=== PATIENT | female | born 1955 | race Caucasian/White ===

== ENCOUNTER 2025-04-06 12:55 | Outpatient (CLI) | payer OTHER, SELFPAY ==
--- OUTSIDE RECORDS SUMMARY | 2025-04-06 13:07 | XMS_ITS | Clinical Summary ---
Author Organization [facility] Address [address] [place] [address] Care Team Providers Care Superintendent Maintenance [employer] Name Role Phone Jj Farr MD Primary Care Provider [phone] Mike Paredes MD Unavailable [phone] Allergies Active Allergy Reactions Criticality Noted Date Comments Codeine Nausea only,Vomiting Low Reaction: Nausea, Vomiting, , , , Hydroxychloroquine Rash Medium Reaction: rash, , Reaction: rash, Scopolamine Hallucinations Medium 11/28/2022 Medications fluticasone propionate (FLONASE) 50 mcg/actuation nasal spray Administer 2 sprays into each nostril daily Active lisinopril (PRINIVIL,ZESTRIL) 2.5 mg tablet Take 4 tablets (10 mg total) by mouth daily Active mirtazapine (REMERON BERTIN-TAB) 15 mg disintegrating tablet Take 1 tablet (15 mg total) by mouth as needed 0 Active famotidine (PEPCID) 20 mg tablet Take 1 tablet (20 mg total) by mouth daily Active tolterodine (DETROL) 2 mg tablet Take 2 tablets (4 mg total) by mouth daily Active celecoxib (CeleBREX) 100 mg capsule Take 1 capsule (100 mg total) by mouth 2 (two) times a day 5 Active albuterol HFA (PROVENTIL HFA,VENTOLIN HFA,PROAIR HFA) 90 mcg/actuation inhaler INHALE 2 PUFFS BY MOUTH EVERY 4 HOURS FOR WHEEZING 5 Active folic acid (FOLVITE) 1 mg tablet Take 1 tablet (1,000 mcg total) by mouth daily 4 Active sertraline (ZOLOFT) 25 mg tablet Take 1 tablet (25 mg total) by mouth daily 5 Active rOPINIRole (REQUIP) 1 mg tabletIndications: Restless leg syndrome Take 1 tablet (1 mg total) by mouth 3 (three) times a day 270 tablet 3 5 Active Active Problems Problem Noted Date Diagnosed Date Aftercare following left knee joint replacement surgery 12/19/2022 Restless leg syndrome 10/26/2022 Aftercare following joint replacement surgery Aftercare following right knee joint replacement surgery 12/01/2019 Long-term current use of hig h risk medication other than anticoagulant 07/26/2017 Arthralgia 07/26/2017 MCTD (mixed connective tissue disease) 7 High risk medication use 05/23/2017 Dry eye 05/23/2017 Osteoarthritis of right knee 05/23/2017 Chronic midline low back pain without sciatica 0 05/23/2017 Ankle pain 05/04/2015 Overview (02/22/2017): Ankle pain Lupus erythematosus 05/04/2015 Overview (02/22/2017): Lupus Osteoarthritis 05/04/2015 Overview (02/22/2017): Osteoarthritis Hyperlipidemia 04/04/2014 Overview (02/23/2017): Hyperlipidemia Hypertension 04/04/2014 Overview (02/23/2017): Hypertension Periodic limb movement disorder 05/08/2013 Overview (02/23/2017): Periodic limb movement disorder Adiposity 05/08/2013 Overview (02/23/2017): Obesity Hypersomnia 05/08/2013 Overview (02/23/2017): Hypersomnia Snoring 05/08/2013 Overview (02/23/2017): Snoring Insomnia 05/08/2013 Overview (02/23/2017): Insomnia Resolved Problems Problem Noted Date Diagnosed Date Resolved Date Primary osteoarthritis of left knee 02/25/2021 12/19/2022 Primary osteoarthritis of right knee 11/05/2019 12/19/2022 Overview (11/05/2019): Added automatically from request for surgery [id number] Bilateral primary osteoarthritis of knee 02/19/2019 12/19/2022 Encounters Date Type Department Care Team Description 01/30/2025 9:00 AM CDT Office Visit [facility] [address] [place] [address] Arnoldo Portillo MD Restless leg syndrome from Last 3 Months Immunizations Immunization Administration Dates Next Due Influenza, Quadrivalent, Split, Intramuscular Surgical History Surgery Date Site/Laterality Comments APPENDECTOMY Appendectomy BLADDER SURGERY bladder sling TONSILLECTOMY Tonsillectomy KNEE ARTHROSCOPY Arthroscopy knee CHOLECYSTECTOMY Cholecystectomy ROTATOR CUFF REPAIR Right HYSTERECTOMY 07/20/1988 - 08/18/1988 Hysterectomy OOPHORECTOMY 07/20/1988 - 08/18/1988 one ovary removed with hysterectomy JOINT REPLACEMENT Right knee Medical History Medical History Date Comments Hx Other Medical Headache, migra ine Hyperlipidemia Hyperlipidemia Hypertension Hypertension Hx Other Medical chronic bronchi tis Hx Other Medical sinus problems Hx Other Medical adenoids Hx Other Medical sinitis Hx Other Medical bladder sling Hx Other Medical Rotator cuff re pair Asthma Asthma Hx Other Medical osteoarthritis; Comments: CARTER 07/22/2014 - Hx Other Medical right shoulder RTC repair Hx Other Medical right knee arth roscopic meniscal repair Hx Other Medical hysterectomy Hx Other Medical bladder suspens ion Hx Other Medical cholecystectomy Hx Other Medical appendectomy Hx Other Medical Right ankle fx. 05-01-15.; Comments: BRENDON 05/04/2015 - Hx Other Medical Hysterectomy in the past.; Comments: BRENDON 05/04/2015 - Hx Other Medical Cholecystectomy in the past.; Comments: BRENDON 05/04/2015 - Hx Other Medical Appendectomy in the past.; Comments: BRENDON 05/04/2015 - Hx Other Medical Tonsillectomy i n the past.; Comments: BRENDON 05/04/2015 - Hx Other Medical Bladder sling i n the past.; Comments: JJC 05/04/2015 - GERD (gastroesophageal reflux disease) Arthritis PONV (postoperative nausea and vomiting) Chronic bronchitis (HCC) Mild diastolic dysfunction Tricuspid valve regurgitation Family History Medical History Relation Name Comments Lung cancer Brother kishore Throat cancer Brother kishore Asthma Daughter Diabetes Father Diabetes mellit us; Heart disease Father Hypertension Father Multiple sclerosis Father Multiple sclerosis; Alzheimer's disease Mother Alzheime r's disease; COPD Mother COPD; Dementia Mother Hypertension Mother Hypertension; Osteoporosis Mother Osteoporosis; Stroke Mother Asthma Other 1 granddaughter Family history of Asthma; Diabetes Other 2 Family history of Diabetes mellitus; Other Other 3 Family history of Colitis; Leukemia Other 4 cousin Family history of Leukemia; Stroke Other 5 aunts Family history of Stroke; Gout Other 6 son Family history of Gout; Pneumonia Other 7 Family history of pneumonia; Relation Name Status Comments Brother kishore Daughter Father Mother Other 1 granddaughter Alive Other 2 Other 3 Other 4 cousin Other 5 aunts Other 6 son Other 7 Social History Tobacco Use Types Packs/Day Years Used Date Smoking Tobacco: Never Smokeless Tobacco: Never Tobacco Cessation:Counseling Given: Not Answered Alcohol Use Standard Drinks/Week Comments Yes 0 (1 standard drink = 0.6 oz pur e alcohol) once a year AUDIT-C Answer Date Recorded Frequency of Alcohol Consumption Not on file 11/28/2022 Q2: How many drinks containi ng alcohol do you have on a typical day when you are drinking? Patient does not drink Frequency of Binge Drinking Not on file 11/19 PHQ-2 Answer Date Recorded PHQ-2 Total Score (If total score is 3 or more points, staff should administer the PHQ-9) 0 12/06/2022 Personal Safety Answer Date Recorded Getting School Help Needed Denies 11/19 Comments No Sex and Gender Information Value Date Recorded Sex Assigned at Not on file Legal Sex Female 1:28 AM PLANNING LEAD Gender Identity Female 11/29/2020 10:55 PM PLANNING LEAD Sexual Orientation Straight 02/19/2019 11 :19 AM CDT Obstetrics History Para Term AB IAB SAB Ectopic Multiple Livin g Live Births 2 2 2 Date Outcome GA Total Labor Labor/2nd/3rd Weight Sex Type Anes PTL Esperanza A1 A5 Name Clin Term Term Last Filed Vital Signs Vital Sign Reading Time Taken Comments Blood Pressure 143/80 01/30/2025 8:44 AM CDT Pulse 61 01/30/2025 8:44 AM CDT Temperature 36.6 C (97.9 F) 12/07/2022 11:00 AM PLANNING LEAD Respiratory Rate 18 02/01/2024 9:32 AM CDT Oxygen Saturation 92% 01/30/2025 8:44 AM CDT Inhaled Oxygen Concentration - - Weight 97 kg (213 lb 12.8 oz) 01/30/2025 8:44 AM CDT Height 160 cm (5' 2.99 ) 01/30/2025 8:44 AM CDT Body Mass Index 37.88 01/30/2025 8:44 AM CDT Plan of Treatment Health Maintenance Due Date Last Done Comments DTaP/Tdap/Td Vaccine (1 - Tdap) 1966 Hepatitis B Screening 1973 Zoster Vaccine (1 of 2) 2005 Pneumococcal vaccine 65+ (2 of 2 - PCV) 07/29/2014 07/29/2013 Osteoporosis Screening-Bone Density Scan 12/19/2019 12/19/2017 Well Visit 65+ 2020 Colon Cancer Screening-Colonoscopy 01/28/2023 01/28/2013, 02/16/2011 Depression Screening 11/23/2023 11/23/2022, 11/26/2019, 11/05/2019 Fall Risk Assessment 12/07/2023 12/07/2022 Breast Cancer Screening-Mammogram 07/15/2025 07/15/2024, 05/08/2023, 04/07/2022, Additional history exists Influenza Vaccine (Season Ended) 2025 08/19/2017, 08/18/2016, 08/09/2016, Additional history exists Colon Cancer Screening-CT Colonography Discontinued 01/28/2013, 02/16/2011 Colon Cancer Screening-DNA Stool Discontinued 01/29/20 13, 02/16/2011 Colon Cancer Screening-FIT Discontinued 01/28/2013, Colon Cancer Screening-Sigmoidoscopy Discontinued 01/28/2013, 02/16/2011 Hepatitis C Screening Completed 11/03/2016, 014 Medical Devices Implanted Type Area Orthotist Prosthetist Device Identifier Shelf Expiration Date Model / Serial / Lot Simplex Hv With Gentamicin Implanted:Qty: 2 on 11/24/2019 by Mike Paredes MD at [facility] Right: Knee [employer] [id number] 06/18/2021 6195-1-001 / / [id number] [employer] [id number] Attune Cemented Posterior Stabilize Knee Right 5 Narrow Component - [id number] Implanted:Qty: 1 on 11/24/2019 by Mike Paredes MD at [facility] Right: Knee [employer] 10/18/2029 [id number] / / [id number] [employer] [id number] Attune S+ Cement Fix Bearing Knee 5 Baseplate Tibial - [id number] Implanted:Qty: 1 on 11/24/2019 by Mike Paredes MD at [facility] Right: Knee [employer] 10/18/2029 [id number] / / [id number] Simplex Hv With Gentamicin Implanted:Qty: 1 on 11/24/2019 by Mike Paredes MD at [facility] Right: Knee [employer] [id number] 06/18/2021 6195-1-001 / / [id number] [employer] [id number] Attune 8mm Posterior Stabilize Fix Bearing Knee 5 Insert Tibial - [id number] Implanted:Qty: 1 on 11/24/2019 by Mike Paredes MD at [facility] Right: Knee [employer] 08/18/2024 [id number] / / [id number] [employer] Attune 8mm Posterior Stabilize Fix Bearing Knee 5 Insert Tibial [id number] - [id number] Implanted:Qty: 1 on 12/06/2022 by Mike Paredes MD at [facility] Left: Knee [employer] [id number] 08/18/2027 [id number] / / [id number] [employer] Cement Bone Simplex Gentamicin High Viscosity 40 6195-1-001 - [id number] Implanted:Qty: 1 on 12/06/2022 by Mike Paredes MD at [facility] [employer] 06/18/2024 6195-1-001 / / [id number] [employer] Cement Bone Simplex Gentamicin High Viscosity 40 6195-1-001 - [id number] Implanted:Qty: 1 on 12/06/2022 by Mike Paredes MD at [facility] [employer] 06/18/2024 6195-1-001 / / [id number] [employer] Attune S+ Cement Fix Bearing Knee 4 Baseplate Tibial [id number] - [id number] Implanted:Qty: 1 on 12/06/2022 by Mike Paredes MD at [facility] Left: Knee [employer] [id number] 07/19/2032 [id number] / / [id number] [employer] Attune Cemented Posterior Stabilize Knee Left 5 Narrow Component [id number] - [id number] Implanted:Qty: 1 on 12/06/2022 by Mike Paredes MD at [facility] Left: Knee [employer] [id number] 09/18/2032 [id number] / / [id number] Procedures Procedure Name Priority Date/Time Associated Diagnosis Comments SCREENING MAMMOGRAM BILATERAL W DON Schedule Routine, Read Routine (OP Routine) 07/15/2024 3:09 PM CDT Screening mammogram, encounter for DEXA AXIAL SKELETON BONE DENSITY 1 OR MORE SITES Schedule Routine, Read Routine (OP Routine) 12/19/2017 8:30 AM PLANNING LEAD Osteoarthritis, unspecified osteoarthritis type, unspecified site SERUM HEPATITIS C AB Routine 11/03/2016 10:27 AM PLANNING LEAD COLONOSCOPY 01/28/2013 12:00 AM CDT from Last 3 Months or Most Recently Relevant to Health Maintenance Results * Screening Mammogram Bilateral W Don (07/15/2024 3:09 PM CDT) Anatomical Region Laterality Modality Breast Bilateral Mammography 07/15/2024 4:08 PM CDT Impressions 07/15/2024 4:08 PM CDT There is no mammographic evidence of malignancy. A 1 year screening mammogram is recommended. BI-RADS: 1 - Negative. The patient has been or will be contacted. The patient will be entered into a reminder system with a target due date of 1 year for her next mammogram. Electronically signed by: Mary Jane Guillory M.D. Narrative 07/15/2024 4:08 PM CDT EXAMINATION: SCREENING MAMMOGRAM BILATERAL W DON ORDERING HEALTHCARE PROVIDER: SELF SCREENING MAMMOGRAM HISTORY: Routine screening mammography. COMPARISON: 05/08/2023,04/07/2022, 02/23/2021, 01/12/2020, 01/07/2019 TECHNIQUE: CC and MLO views of the bilateral breasts were obtained with digital technique using breast tomosynthesis with C view. Computer aided detection was utilized. FINDINGS: DENSITY: The tissue of the bilateral breasts is almost entirely fatty. BREASTS: There are no suspicious masses, suspicious calcifications, or other suspicious findings in either breast. There has been no suspicious interval change. us Self Screening Mammogram IMG MAMMO PROCEDURES Fi nal Result * Dexa Axial Skeleton Bone Density 1 or 2 Site (12/19/2017 8:30 AM PLANNING LEAD) Anatomical Region Laterality Modality Body N/A Other Impressions 12/19/2017 8:38 AM PLANNING LEAD 1. OSTEOPENIA OF THE HIP WITH FEMORAL NECK T SCORE -1.5. 2. NORMAL BONE MINERAL DENSITY STUDY OF THE LUMBAR SPINE WITH TOTAL T SCORE 1.3. COMMENT: W.H.O. defines the T-score of between -1 and -2.5 as osteopenia, the level at which there may be an increased risk of developing osteoporosis and fractures in the future. Osteoporosis is defined as T-score lower than -2.5 (significantly increased risk of fracture due to osteoporosis). T-score is a comparison to peak bone mineral density of young adult reference population. Z-score is a comparison to bone mineral density of sex and age group population. Electronically signed by: Son Tian M.D. Narrative 12/19/2017 8:38 AM PLANNING LEAD DEXA AXIAL SKELETON BONE DENSITY 1 OR MORE SITES HISTORY: Osteoarthritis. M19. 90 COMPARISON: None available. FINDINGS: DXA LEFT HIP RESULTS SUMMARY: 1. Femoral neck BMD 0.680 (g/cmsquared); T-SCORE -1.5 2. Total hip BMD 0.920 (g/cmsquared); T-SCORE -0.2 DXA L-SPINE RESULTS SUMMARY: 1. Total lumbar BMD 1.186 (g/cmsquared); T-SCORE 1.3 Procedure Note Son Tian MD / Provider, MD Jimmie - 12/19/2017 DEXA AXIAL SKELETON BONE DENSITY 1 OR MORE SITES HISTORY: Osteoarthritis. M19. 90 COMPARISON: None available. FINDINGS: DXA LEFT HIP RESULTS SUMMARY: 1. Femoral neck BMD 0.680 (g/cmsquared); T-SCORE -1.5 2. Total hip BMD 0.920 (g/cmsquared); T-SCORE -0.2 DXA L-SPINE RESULTS SUMMARY: 1. Total lumbar BMD 1.186 (g/cmsquared); T-SCORE 1.3 IMPRESSION: 1. OSTEOPENIA OF THE HIP WITH FEMORAL NECK T SCORE -1.5. 2. NORMAL BONE MINERAL DENSITY STUDY OF THE LUMBAR SPINE WITH TOTAL T SCORE 1.3. COMMENT: W.H.O. defines the T-score of between -1 and -2.5 as osteopenia, the level at which there may be an increased risk of developing osteoporosis and fractures in the future. Osteoporosis is defined as T-score lower than -2.5 (significantly increased risk of fracture due to osteoporosis). T-score is a comparison to peak bone mineral density of young adult reference population. Z-score is a comparison to bone mineral density of sex and age group population. Electronically signed by: Son Tian M.D. Jj Farr MD IM DXA PROCEDURES Final Re sult * Serum Hepatitis C ab (11/03/2016 10:27 AM PLANNING LEAD) HCV ab Negative Negative CDR HISTOR ICAL RESULTS Serum 11/03/2016 10:2 7 AM PLANNING LEAD Historical Provider LAB BLOOD ORDERABLES Rosetta perkins Result CDR HISTORICAL RESULTS * COLONOSCOPY (01/28/2013 12:00 AM CDT) Anatomical Region Laterality Modality Other Narrative 01/28/2013 12:00 AM CDT Ordered by an unspecified provider. Procedure Note Provider, MD Jimmie - 01/28/2013 12:00 AM CDT PROCEDURE REPORT Patient: NAZ BALTAZAR Account: [id number] Room No: : 1955 Patient Type: [facility] Attend.: Ze Lo M.D. Admit Date: 01/28/2013 Dict.: Ze Lo M.D. Disch. Date: 01/28/2013 NAME OF PROCEDURE: Colonoscopy with biopsy. HISTORY: 58-year-old female presents for screening colonoscopy. PHYSICAL EXAMINATION: Obese female. Lungs are clear. Cardiovascular examination is unremarkable. PROCEDURE: Colonoscopy with biopsy was performed with a CSID videoendoscope. The patient was premedicated by Anesthesia. On digital examination, no abnormalities were palpable. We inserted the endoscope,saw a few scattered diverticula of both the right and left side of the colon.We entered the terminal ileum. There were some very shallow ulcerations,probably 2-3 mm in diameter, in the TI that do not look typical for Crohndisease. Nevertheless, we did multiple biopsies to assess them histologically. Derrell removed the endoscope from the TI, carefully examined the well-preppedcolon which we got good visualization, and I could find no other abnormalities.The patient tolerated the procedure without difficulty. POSTOPERATIVE DIAGNOSES: 1. Tiny, shallow ulcerations in the terminal ileum, biopsied. 2. Scattered diverticula. 3. Otherwise normal. Bhargavi Johnson TD: 01/28/2013 15:09 CC: Willie Forman M.D. Authenticated by Ze Lo MD On 01/30/2013 10:11:44 AM Historical Provider ENDOSCOPY PROCEDURES Rosetta l Result from Last 3 Months or Most Recently Relevant to Health Maintenance Insurance MEDICARE [facility] CHOICE PLUS [facility] Member Subscriber Plan / Payer (Ef fective 2019-Present) Name:Naz Baltazar Relation to Subscriber:Self Name:Naz Baltazar Payer ID:[id number] (NAIC) Type:MEDICARE RISK OTHER Address: [place] [id number] [facility] Advance Directives For more information, please contact: [phone] * Full Code (Latest Code Status on File) Date Activated Date Inactivated Comments 12/06/2022 12:32 PM 12/07/2022 5:01 PM * Full Code Date Activated Date Inactivated Comments 11/27/2019 1:22 AM 11/28/2019 7:01 PM * Full Code Date Activated Date Inactivated Comments 11/24/2019 1:16 PM 11/25/2019 6:18 PM Care Teams Superintendent [employer] Relationship Specialty Start Date End Date Jj Farr MD [address] [place] [address] PCP - General Internal Medicine 02/24/22 Mike Paredes MD [address] [place] [address] [place] [address] Surgeon Orthopedic Surgery 12/07/22
--- OUTSIDE RECORDS SUMMARY | 2025-04-06 13:07 | XMS_ITS | Referral Summary ---
Author Organization [facility] Address [address] [place] [address] Care Team Providers Care Product Expert Name Role Phone Jj Farr MD Primary Care Provider [phone] Mike Paredes MD Unavailable Encounters Date Type Department Care Team Description 01/30/2025 9:00 AM CDT Office Visit [facility] [address] [facility] [address] [place] [phone] Arnoldo Portillo MD Restless leg syndrome from Last 3 Months Allergies Active Allergy Reactions Criticality Noted Date [...] (11/05/2019): Added automatically from request for surgery [id number] Bilateral primary osteoarthritis of knee 02/19/2019 12/19/2022 Immunizations Immunization Administration Dates Next Due Influenza, Quadrivalent, Split, Intramuscular Social History Tobacco Use Types Packs/Day Years [...] on file Legal Sex Female 1:28 AM PROCUREMENT CLERK Gender Identity Female 11/29/2020 10:55 PM PROCUREMENT CLERK Sexual Orientation Straight 02/19/2019 11 :19 AM CDT Last Filed Vital Signs Vital Sign Reading Time Taken Comments Blood Pressure 143/80 01/30/2025 8:44 AM CDT Pulse 61 01/30/2025 8:44 AM CDT Temperature 36.6 C (97.9 F) 12/07/2022 11:00 AM PROCUREMENT CLERK Respiratory Rate 18 02/01/2024 9:32 AM CDT Oxygen Saturation 92% 01/30/2025 8:44 AM CDT Inhaled Oxygen Concentration - - Weight 97 kg (213 lb 12.8 oz) 01/30/2025 8:44 AM CDT Height 160 cm (5' 2.99 ) 01/30/2025 8:44 AM CDT Body Mass Index 37.88 01/30/2025 8:44 AM CDT Plan of Treatment Not on file Medical Devices Implanted Type Area Surgical Garment Fitter Device Identifier Shelf Expiration Date Model / Serial / Lot Simplex Hv With Gentamicin Implanted:Qty: 2 on 11/24/2019 by Mike Paredes MD at [facility] Right: Knee [employer] [id number] 06/18/2021 6195-1-001 / / [id number] [employer] [id number] Attune Cemented Posterior Stabilize Knee Right 5 Narrow Component - [id number] Implanted:Qty: 1 on 11/24/2019 by Mike Paredes MD at [facility] Right: Knee [employer] 10/18/2029 [id number] / / [id number] [employer] [id number] Attune S+ Cement Fix Bearing Knee 5 Baseplate Tibial - [id number] Implanted:Qty: 1 on 11/24/2019 by Mike Paredes MD at [facility] Right: Knee [employer] 10/18/2029 [id number] / / [id number] Simplex Hv With Gentamicin Implanted:Qty: 1 on 11/24/2019 by Mike Paredes MD at [facility] Right: Knee [employer] [id number] 06/18/2021 6195-1-001 / / [id number] [employer] [id number] Attune 8mm Posterior Stabilize Fix Bearing Knee 5 Insert Tibial - [id number] Implanted:Qty: 1 on 11/24/2019 by Mike Paredes MD at [facility] Right: Knee [employer] 08/18/2024 [id number] / / [id number] [employer] Attune 8mm Posterior Stabilize Fix Bearing Knee 5 Insert Tibial [id number] - [id number] Implanted:Qty: 1 on 12/06/2022 by Mike Paredes MD at [facility] Left: Knee [employer] [id number] 08/18/2027 [id number] / / [id number] [employer] Cement Bone Simplex Gentamicin High Viscosity 40 6195-1-001 - [id number] Implanted:Qty: 1 on 12/06/2022 by Mike Paredes MD at [facility] [employer] 06/18/2024 6195-1-001 / / [id number] [employer] Cement Bone Simplex Gentamicin High Viscosity 40 6195-1-001 - [id number] Implanted:Qty: 1 on 12/06/2022 by Mike Paredes MD at [facility] [employer] 06/18/2024 6195-1-001 / / [id number] [employer] Attune S+ Cement Fix Bearing Knee 4 Baseplate Tibial [id number] - [id number] Implanted:Qty: 1 on 12/06/2022 by Mike Paredes MD at [facility] Left: Knee [employer] [id number] 07/19/2032 [id number] / / [id number] [employer] Attune Cemented Posterior Stabilize Knee Left 5 Narrow Component [id number] - [id number] Implanted:Qty: 1 on 12/06/2022 by Mike Paredes MD at [facility] Left: Knee [employer] [id number] 09/18/2032 [id number] / / [id number] Procedures Procedure Name Priority Date/Time Associated Diagnosis Comments SCREENING MAMMOGRAM BILATERAL W DON Schedule Routine, Read Routine (OP Routine) 07/15/2024 3:09 PM CDT Screening mammogram, encounter for DEXA AXIAL SKELETON BONE DENSITY 1 OR MORE SITES Schedule Routine, Read Routine (OP Routine) 12/19/2017 8:30 AM PROCUREMENT CLERK Osteoarthritis, unspecified osteoarthritis type, unspecified site SERUM HEPATITIS C AB Routine 11/03/2016 10:27 AM PROCUREMENT CLERK COLONOSCOPY 01/28/2013 12:00 AM CDT from Last [...] 1 or 2 Site (12/19/2017 8:30 AM PROCUREMENT CLERK) Anatomical Region Laterality Modality Body N/A Other Impressions 12/19/2017 8:38 AM PROCUREMENT CLERK 1. OSTEOPENIA OF THE HIP WITH FEMORAL [...] Son Tian M.D. Narrative 12/19/2017 8:38 AM PROCUREMENT CLERK DEXA AXIAL SKELETON BONE DENSITY 1 OR MORE SITES HISTORY: Osteoarthritis. COMPARISON: None available. FINDINGS: DXA LEFT HIP RESULTS SUMMARY: 1. Femoral neck BMD 0.680 (g/cmsquared); T-SCORE -1.5 2. Total hip BMD 0.920 (g/cmsquared); T-SCORE -0.2 DXA L-SPINE RESULTS SUMMARY: 1. Total lumbar BMD 1.186 (g/cmsquared); T-SCORE 1.3 Procedure Note Son Tian MD / ProviderJimmie MD - 12/19/2017 DEXA AXIAL SKELETON BONE DENSITY 1 OR MORE SITES HISTORY: Osteoarthritis. COMPARISON: None available. FINDINGS: DXA LEFT HIP [...] by: Son Tian M.D. Jj Farr MD IMG DXA PROCEDURES Final Re sult * Serum Hepatitis C ab (11/03/2016 10:27 AM PROCUREMENT CLERK) HCV ab Negative Negative CDR HISTOR ICAL RESULTS Serum 11/03/2016 10:2 7 AM PROCUREMENT CLERK us Historical Provider LAB BLOOD ORDERABLES Rosetta l Result CDR HISTORICAL RESULTS * COLONOSCOPY (01/28/2013 12:00 AM CDT) Anatomical Region Laterality Modality Other Narrative 01/28/2013 12:00 AM CDT Ordered by an unspecified provider. Procedure Note ProviderJimmie MD - 01/28/2013 12:00 AM CDT PROCEDURE REPORT Patient: NAZ BALTAZAR Account: [id number] Room No: : 1955 Patient Type: [facility] Attend.: Ze Lo M.D. Admit Date: 01/28/2013 Dict.: Ze Lo M.D. Disch. Date: 01/28/2013 NAME OF PROCEDURE: Colonoscopy with biopsy. HISTORY: 58-year-old female presents for screening colonoscopy. PHYSICAL EXAMINATION: Obese female. Lungs are clear. Cardiovascular examination is unremarkable. PROCEDURE: Colonoscopy with biopsy was performed with a Kadriana videoendoscope. The patient was premedicated by Anesthesia. [...] Ze Lo MD On 01/30/2013 10:11:44 AM us Historical Provider ENDOSCOPY PROCEDURES Rosetta l Result from Last 3 Months or Most Recently Relevant to Health Maintenance Insurance MEDICARE [facility] CHOICE PLUS [facility] Advance Directives For more information, please contact: [phone] * Full Code (Latest Code Status on File) Date Activated Date Inactivated Comments 12/06/2022 12:32 PM 12/07/2022 5:01 PM * Full Code Date Activated Date Inactivated Comments 11/27/2019 1:22 AM 11/28/2019 7:01 PM * Full Code Date Activated Date Inactivated Comments 11/24/2019 1:16 PM 11/25/2019 6:18 PM Care Teams Product Expert Relationship Specialty Start Date End Date Jj Farr MD [address] [place] [address] PCP - General Internal Medicine 02/24/22 Mike Paredes MD [address] [place] [address] Surgeon Orthopedic Surgery 12/07/22
== END 2025-04-06 12:56 | disposition home or self-care (01) ==
LOC: ANHSURGERY 13:03
PROVIDERS: Visit Provider Urology
DX: N39.46 Mixed incontinence (principal); N36.42 Intrinsic sphincter deficiency (ISD)
CPT/HCPCS: 87086

== ENCOUNTER 2025-04-17 00:16 | Day surgery (SDC) | payer OTHER, SELFPAY ==
[2025-04-03 12:28] VITALS: BMI 37.5
--- NOTE | 2025-04-03 12:41 | PC.NURSE ---
Report to the Outpatient Waiting Room, entrance under the green pavilion located off [facility], at time ___0800am____ on date _04/17/25 . Planned Procedure Time: 1000am .? Time changes happen often and if your time is changed the preop area will call you the afternoon before. - You and your visitor will be asked to self-screen and do not enter if you have any COVID symptoms. Please call surgeon if you need to reschedule. - A mask is optional within the hospital at this time. Patients may have clear liquids (water, carbonated beverages, clear teas, apple juice) until 3 hours prior to surgery with a maximum of 20 ounces. - No food from midnight until time of surgery and no smoking, or chewing tobacco (or any form of nicotine). No chewing gum, candy or mints.(0700am) - Take only the following medications with a SIP of water on the morning of surgery: Ihnalers if needed, Tramadol if needed, Ropinirole DO NOT STOP ANY OF YOUR OTHER PRESCRIPTION MEDICATIONS PRIOR TO SURGERY EXCEPT THE FOLLOWING Hold all vitamins and supplements for [address] Cunningham, Medications to discontinue per physician All supplements and OTC meds per DR Cunningham for 7 days Date to take last dose____04/08/25 Please no make-up, nail bulgarian, hairspray, perfume, deodorant, or body powder the day of surgery.? No jewelry (including any body piercings) or valuables the day of surgery, leave them at home.? Please take a shower or bath the night before, or the morning of, surgery with an antibacterial soap.? Wear comfortable, loose fitting clothing.? - Jewelry must be removed prior to entering the operating room.? Rings and piercings that are not removed may be cut off. - The hospital will not accept responsibility for valuables.? - Please leave all valuables, including medications, at home the day of surgery. If you are going home after surgery, a licensed ice delivery driver must drive you home.? - NO public transportation without another adult if you receive anesthesia. - We recommend that an adult stay with you for 24 hours following discharge. - We also recommend that you do not drive, make important decision, drink alcoholic beverages, or take any drugs that were not prescribed by your health care provider for at least 24 hours after your discharge time. Follow any additional instructions given to you from your surgeon. Telephone instructions given to ___Patient and asked if any additional questions and then verbalized understanding. Patient advised to call surgeon office or pre surgery nurse liaison [phone] if any additional questions.
--- OUTSIDE RECORDS SUMMARY | 2025-04-17 00:19 | XMS_ITS | Referral Summary ---
Author Organization [facility] Address [address] [place] [address] Care Team Providers Care Supervisor Accounts Receivable Name Role Phone Jj Farr MD Primary Care Provider [phone] Mike Paredes MD Unavailable [phone] Encounters Date Type Department Care Team Description 01/30/2025 9:00 AM CDT Office Visit [facility] [address] [facility] [address] [place] [phone] Arnoldo Portillo MD Restless leg syndrome from [...] (11/05/2019): Added automatically from request for surgery [id number] Bilateral primary osteoarthritis of knee 02/19/2019 12/19/2022 [...] on file Legal Sex Female 1:28 AM BIOLOGICAL SCIENCE AIDE Gender Identity Female 11/29/2020 10:55 PM BIOLOGICAL SCIENCE AIDE Sexual Orientation Straight 02/19/2019 11 :19 AM CDT Last Filed Vital Signs Vital Sign Reading Time Taken Comments Blood Pressure 143/80 01/30/2025 8:44 AM CDT Pulse 61 01/30/2025 8:44 AM CDT Temperature 36.6 C (97.9 F) 12/07/2022 11:00 AM BIOLOGICAL SCIENCE AIDE Respiratory Rate 18 02/01/2024 9:32 AM CDT Oxygen Saturation 92% 01/30/2025 8:44 AM CDT Inhaled Oxygen Concentration - - Weight 97 kg (213 lb 12.8 oz) 01/30/2025 8:44 AM CDT Height 160 cm (5' 2.99) 01/30/2025 8:44 AM CDT Body Mass Index 37.88 01/30/2025 8:44 AM CDT Plan of Treatment Not on file Medical Devices Implanted Type Area Yardmaster Device Identifier Shelf Expiration Date Model / Serial / Lot Simplex Hv With Gentamicin Implanted:Qty: 2 on 11/24/2019 by Mike Paredes MD at [facility] Right: Knee [employer] C1713 06/18/2021 6195-1-001 / / [id number] [employer] [id number] Attune Cemented Posterior Stabilize Knee Right 5 Narrow Component - [id number] Implanted:Qty: 1 on 11/24/2019 by Mike Paredes MD at [facility] Right: Knee [employer] 10/18/2029 [id number] / / [id number] [employer] [id number] Attune S+ Cement Fix Bearing Knee 5 Baseplate Tibial - [id number] Implanted:Qty: 1 on 11/24/2019 by Mike Paredes MD at [facility] Right: Knee [employer] 10/18/2029 [id number] / / [id number] Simplex Hv With Gentamicin Implanted:Qty: 1 on 11/24/2019 by Mike Paredes MD at [facility] Right: Knee [employer] C1713 06/18/2021 6195-1-001 / / [id number] [employer] [id number] Attune 8mm Posterior Stabilize Fix Bearing Knee 5 Insert Tibial - [id number] Implanted:Qty: 1 on 11/24/2019 by Mike Paredes MD at [facility] Right: Knee [employer] 08/18/2024 [id number] / / [id number] [employer] Attune 8mm Posterior Stabilize Fix Bearing Knee 5 Insert Tibial [id number] - [id number] Implanted:Qty: 1 on 12/06/2022 by Mike Paredes MD at [facility] Left: Knee [employer] [id number] 08/18/2027 [id number] / / [id number] [employer] Cement Bone Simplex Gentamicin High Viscosity 40 6195-1-001 - [id number] Implanted:Qty: 1 on 12/06/2022 by Mike Paredes MD at [facility] [employer] 06/18/2024 6195-1-001 / / [id number] [employer] Cement Bone Simplex Gentamicin High Viscosity 40 6195-1-001 - [id number] Implanted:Qty: 1 on 12/06/2022 by Mike Paredes MD at [facility] [employer] 06/18/2024 6195-1-001 / / [id number] [employer] Attune S+ Cement Fix Bearing Knee 4 Baseplate Tibial [id number] - [id number] Implanted:Qty: 1 on 12/06/2022 by Mike Paredes MD at [facility] Left: Knee [employer] [id number] 07/19/2032 [id number] / / [id number] [employer] Attune Cemented Posterior Stabilize Knee Left 5 Narrow Component [id number] - [id number] Implanted:Qty: 1 on 12/06/2022 by Mike Paredes MD at [facility] Left: Knee [employer] [id number] 09/18/2032 [id number] / / [id number] Procedures Procedure Name Priority Date/Time Associated Diagnosis Comments SCREENING MAMMOGRAM BILATERAL W DON Schedule Routine, Read Routine (OP Routine) 07/15/2024 3:09 PM CDT Screening mammogram, encounter for DEXA AXIAL SKELETON BONE DENSITY 1 OR MORE SITES Schedule Routine, Read Routine (OP Routine) 12/19/2017 8:30 AM BIOLOGICAL SCIENCE AIDE Osteoarthritis, unspecified osteoarthritis type, unspecified site SERUM HEPATITIS C AB Routine 11/03/2016 10:27 AM BIOLOGICAL SCIENCE AIDE COLONOSCOPY 01/28/2013 12:00 AM CDT from Last [...] 1 or 2 Site (12/19/2017 8:30 AM BIOLOGICAL SCIENCE AIDE) Anatomical Region Laterality Modality Body N/A Other Impressions 12/19/2017 8:38 AM BIOLOGICAL SCIENCE AIDE 1. OSTEOPENIA OF THE HIP WITH FEMORAL [...] Son Tian M.D. Narrative 12/19/2017 8:38 AM BIOLOGICAL SCIENCE AIDE DEXA AXIAL SKELETON BONE DENSITY 1 OR [...] Serum Hepatitis C ab (11/03/2016 10:27 AM BIOLOGICAL SCIENCE AIDE) HCV ab Negative Negative CDR HISTOR ICAL RESULTS Serum 11/03/2016 10:2 7 AM BIOLOGICAL SCIENCE AIDE us Historical Provider LAB BLOOD ORDERABLES Rosetta l Result CDR HISTORICAL RESULTS * COLONOSCOPY (01/28/2013 12:00 AM CDT) Anatomical Region Laterality Modality Other Narrative 01/28/2013 12:00 AM CDT Ordered by an unspecified provider. Procedure Note ProviderJimmie MD - 01/28/2013 12:00 AM CDT PROCEDURE REPORT Patient: NAZ BALTAZAR Account: [id number] Room No: : 1955 Patient Type: [facility] Attend.: Ze Lo M.D. Admit Date: 01/28/2013 Dict.: Ze Lo M.D. Disch. Date: 01/28/2013 NAME OF PROCEDURE: Colonoscopy with biopsy. HISTORY: 58-year-old female presents for screening colonoscopy. PHYSICAL EXAMINATION: Obese female. Lungs are clear. Cardiovascular examination is unremarkable. PROCEDURE: Colonoscopy with biopsy was performed with a videof.me videoendoscope. The patient was premedicated by Anesthesia. [...] Recently Relevant to Health Maintenance Insurance MEDICARE [facility] CHOICE PLUS [facility] H[facility]/PPO Address: [address] [address] [place] [address] [facility] Advance Directives For more information, please contact: [phone] * Full Code (Latest Code Status on File) Date Activated Date Inactivated Comments 12/06/2022 12:32 PM 12/07/2022 5:01 PM * Full Code Date Activated Date Inactivated Comments 11/27/2019 1:22 AM 11/28/2019 7:01 PM * Full Code Date Activated Date Inactivated Comments 11/24/2019 1:16 PM 11/25/2019 6:18 PM Care Teams Supervisor Accounts Receivable Relationship Specialty Start Date End Date Jj Farr MD [address] [place] [address] PCP - General Internal Medicine 02/24/22 Mike Paredes MD [address] [place] [address] Surgeon Orthopedic Surgery 12/07/22
--- OUTSIDE RECORDS SUMMARY | 2025-04-17 00:19 | XMS_ITS | Clinical Summary ---
Author Organization [facility] Address [address] [place] [address] Care Team Providers Care Asphalt Tile Floor Layer Name Role Phone Jj Farr MD Primary Care Provider [phone] Mike Paredes MD Unavailable [phone] Allergies Active Allergy Reactions Criticality Noted Date [...] (11/05/2019): Added automatically from request for surgery [id number] Bilateral primary osteoarthritis of knee 02/19/2019 12/19/2022 Encounters Date Type Department Care Team Description 01/30/2025 9:00 AM CDT Office Visit [facility] [address] [facility] [address] [place] [address] Arnoldo Portillo MD Restless leg [...] on file Legal Sex Female 1:28 AM SENIOR OUTSIDE SALES REPRESENTATIVE Gender Identity Female 11/29/2020 10:55 PM SENIOR OUTSIDE SALES REPRESENTATIVE Sexual Orientation Straight 02/19/2019 11 :19 AM [...] 36.6 C (97.9 F) 12/07/2022 11:00 AM SENIOR OUTSIDE SALES REPRESENTATIVE Respiratory Rate 18 02/01/2024 9:32 AM CDT [...] 11/03/2016, 014 Medical Devices Implanted Type Area Bow Repairer Custom Device Identifier Shelf Expiration Date Model / Serial / Lot Simplex Hv With Gentamicin Implanted:Qty: 2 on 11/24/2019 by Mike Paredes MD at [facility] Right: Knee [employer] C1713 06/18/2021 6195-1-001 / / [id number] [employer] [id number] Attune Cemented Posterior Stabilize Knee Right 5 Narrow Component - [id number] Implanted:Qty: 1 on 11/24/2019 by Mike Paredes MD at [facility] Right: Knee [employer] 10/18/2029 [id number] / / [id number] [employer] [id number] Attune S+ Cement Fix Bearing Knee 5 Baseplate Tibial - [id number] Implanted:Qty: 1 on 11/24/2019 by Mike Paredes MD at [facility] Right: Knee [employer] 10/18/2029 [id number] / / [id number] Simplex Hv With Gentamicin Implanted:Qty: 1 on 11/24/2019 by Mike Paredes MD at [facility] Right: Knee [employer] C1713 06/18/2021 6195-1-001 / / [id number] [employer] [id number] Attune 8mm Posterior Stabilize Fix Bearing Knee 5 Insert Tibial - [id number] Implanted:Qty: 1 on 11/24/2019 by Mike Paredes MD at [facility] Right: Knee [employer] 08/18/2024 [id number] / / [id number] [employer] Attune 8mm Posterior Stabilize Fix Bearing Knee 5 Insert Tibial [id number] - [id number] Implanted:Qty: 1 on 12/06/2022 by Mike Paredes MD at [facility] Left: Knee [employer] [id number] 08/18/2027 [id number] / / [id number] [employer] Cement Bone Simplex Gentamicin High Viscosity 40 6195-1-001 - [id number] Implanted:Qty: 1 on 12/06/2022 by Mike Paredes MD at [facility] [employer] 06/18/2024 6195-1-001 / / [id number] [employer] Cement Bone Simplex Gentamicin High Viscosity 40 6195-1-001 - [id number] Implanted:Qty: 1 on 12/06/2022 by Mike Paredes MD at [facility] [employer] 06/18/2024 6195-1-001 / / [id number] [employer] Attune S+ Cement Fix Bearing Knee 4 Baseplate Tibial [id number] - [id number] Implanted:Qty: 1 on 12/06/2022 by Mike Paredes MD at [facility] Left: Knee [employer] [id number] 07/19/2032 [id number] / / [id number] [employer] Attune Cemented Posterior Stabilize Knee Left 5 Narrow Component [id number] - [id number] Implanted:Qty: 1 on 12/06/2022 by Mike Paredes MD at [facility] Left: Knee [employer] [id number] 09/18/2032 [id number] / / [id number] Procedures Procedure Name Priority Date/Time Associated Diagnosis Comments SCREENING MAMMOGRAM BILATERAL W DON Schedule Routine, Read Routine (OP Routine) 07/15/2024 3:09 PM CDT Screening mammogram, encounter for DEXA AXIAL SKELETON BONE DENSITY 1 OR MORE SITES Schedule Routine, Read Routine (OP Routine) 12/19/2017 8:30 AM SENIOR OUTSIDE SALES REPRESENTATIVE Osteoarthritis, unspecified osteoarthritis type, unspecified site SERUM HEPATITIS C AB Routine 11/03/2016 10:27 AM SENIOR OUTSIDE SALES REPRESENTATIVE COLONOSCOPY 01/28/2013 12:00 AM CDT from Last [...] 1 or 2 Site (12/19/2017 8:30 AM SENIOR OUTSIDE SALES REPRESENTATIVE) Anatomical Region Laterality Modality Body N/A Other Impressions 12/19/2017 8:38 AM SENIOR OUTSIDE SALES REPRESENTATIVE 1. OSTEOPENIA OF THE HIP WITH FEMORAL [...] Son Tian M.D. Narrative 12/19/2017 8:38 AM SENIOR OUTSIDE SALES REPRESENTATIVE DEXA AXIAL SKELETON BONE DENSITY 1 OR [...] Serum Hepatitis C ab (11/03/2016 10:27 AM SENIOR OUTSIDE SALES REPRESENTATIVE) HCV ab Negative Negative CDR HISTOR ICAL RESULTS Serum 11/03/2016 10:2 7 AM SENIOR OUTSIDE SALES REPRESENTATIVE Historical Provider LAB BLOOD ORDERABLES Rosetta perkins Result CDR HISTORICAL RESULTS * COLONOSCOPY (01/28/2013 12:00 AM CDT) Anatomical Region Laterality Modality Other Narrative 01/28/2013 12:00 AM CDT Ordered by an unspecified provider. Procedure Note Provider, MD Jimmie - 01/28/2013 12:00 AM CDT PROCEDURE REPORT Patient: NAZ BALTAZAR Account: [id number] Room No: : 1955 Patient Type: [facility] Attend.: Ze Lo M.D. Admit Date: 01/28/2013 Dict.: Ze Lo M.D. Disch. Date: 01/28/2013 NAME OF PROCEDURE: Colonoscopy with biopsy. HISTORY: 58-year-old female presents for screening colonoscopy. PHYSICAL EXAMINATION: Obese female. Lungs are clear. Cardiovascular examination is unremarkable. PROCEDURE: Colonoscopy with biopsy was performed with a Agent Panda videoendoscope. The patient was premedicated by Anesthesia. [...] Recently Relevant to Health Maintenance Insurance MEDICARE [facility] CHO[facility] PLUS [facility] HEALTHCARE Member Subscriber Plan / Payer (Ef fective 2019-Present) Name:Naz Baltazar Relation to Subscriber:Self Name:Naz Baltazar Payer ID:[id number] (NAIC) Type:MEDICARE RISK OTHER Address: [place] [id number] [facility] Advance Directives For more information, please contact: [phone] * Full Code (Latest Code Status on File) Date Activated Date Inactivated Comments 12/06/2022 12:32 PM 12/07/2022 5:01 PM * Full Code Date Activated Date Inactivated Comments 11/27/2019 1:22 AM 11/28/2019 7:01 PM * Full Code Date Activated Date Inactivated Comments 11/24/2019 1:16 PM 11/25/2019 6:18 PM Care Teams Asphalt Tile Floor Layer Relationship Specialty Start Date End Date Jj Farr MD [address] [place] [address] PCP - General Internal Medicine 02/24/22 Mike Paredes MD [address] [place] [address] [place] [address] Surgeon Orthopedic Surgery 12/07/22
--- NOTE | 2025-04-17 07:29 | WPDHPUPDATE1 ---
History and Physical Update Update Date/Time: 04/17/25 07:29 History and Physical has been reviewed, including an updated exam of the patient. There are NO changes in the patient's condition. Risks, benefits, and alternatives have been discussed and questions answered. Patient agrees to proceed with procedure.
[2025-04-17 08:05] VITALS: BP 147/78; PULSE 68; RESP 20; TEMP 36.5; O2SAT 95
--- NOTE | 2025-04-17 08:39 | P.PNAN_ITS ---
Anes - Initial Pre Proc Eval Procedure: Operation Date: 04/17/25 10:00 Proposed Procedures p Cystoscopy, Injection Bulking Agent - Todd Cunningham MD Date/Time: 04/17/25 08:39 Surgeon: Todd Cunningham MD Pre Op Diagnosis: ID Patient Data Age: 70 Gender: F Height: 1.6 m Weight: 96 kg Allergies Allergy/AdvReac Type Severity Reaction Status Date / Time codeine Allergy Severe Vomiting Verified 04/17/25 08:08 hydroxychloroquine Allergy Intermediate Rash Verified 04/17/25 08:08 ondansetron AdvReac Severe Vomiting Verified 04/17/25 08:08 ciprofloxacin AdvReac Vomiting Verified 04/17/25 08:08 Home Medications ?Medication ?Instructions ?Recorded ?Confirmed ?Type famotidine 20 mg tablet 20 mg PO DAILY 11/07/22 04/17/25 History folic acid 1 mg tablet 1 mg PO DAILY 11/07/22 04/03/25 History magnesium 250 mg tablet 250 mg PO DAILY 11/07/22 04/03/25 History ropinirole 1 mg tablet 1 mg PO BID 11/07/22 04/17/25 History tramadol 50 mg tablet 50 mg PO Q6H PRN pain 11/07/22 04/03/25 History zinc acetate 50 mg (zinc) capsule 50 mg PO DAILY 11/07/22 04/03/25 History lisinopril 2.5 mg tablet 10 mg PO DAILY 12/02/24 04/17/25 History tolterodine 4 mg capsule,extended 4 mg PO Q24H #30 caps 01/21/25 04/17/25 Rx release 24 hr (Detrol LA) acetaminophen 650 mg 650 mg PO Q8H PRN pain 04/03/25 04/17/25 History tablet,extended release (Arthritis Pain Relief (acetaminophen) ER) albuterol sulfate 90 mcg/actuation 2 inh inhalation Q6-8H bronchospasm 04/03/25 04/03/25 History aerosol inhaler fluticasone propionate 50 2 spray intranasal DAILY 04/17/25 04/17/25 History mcg/actuation nasal spray,suspension Patient hx anesthesia problems: none Family hx anesthesia problems: none Results Review: All pre-operative results and documents have been reviewed as part of the pre- operative evaluation. [facility] Past Medical History Medical History (Updated 12/02/24 @ 11:31 by Vipin Dickens MD) Tricuspid valve regurgitation Screening mammogram, encounter for Heart disease stage 1 diastolic dysfunction COPD (chronic obstructive pulmonary disease) Hypertension Asthma Osteoarthritis Anxiety and depression Surgical History Surgical History (Updated 12/02/24 @ 11:13 by Analilia Cruz Darrel) History of back surgery H/O total knee replacement (~2019) right knee / left knee 2022 History of sinus surgery History of cholecystectomy History of stress incontinence procedure using tension free vaginal tape History of tonsillectomy History of hysterectomy (~1987) Family History Family History Father Diabetes mellitus Family history of congenital heart disease Family history of arthritis Family history of kidney stones Mother Family history of osteoporosis Family history of congenital heart disease Family history of arthritis Family history of chronic obstructive pulmonary disease Sibling Family history of malignant neoplasm of skin Other Diabetes mellitus maternal aunt Malignant neoplasm of lung paternal uncle Aneurysm paternal uncle Malignant tumor of pharynx paternal uncle Daughter Diabetes mellitus Other Family history of malignant neoplasm of bone Social History Social History (Updated 12/02/24 @ 11:04 by Analilia Cruz Darrel) Smoking status: Never smoker Alcohol intake: never Substance use: never Substance use type: does not use Do You Feel Safe in your Home?: Yes Lack of Transportation: No Lack of Food: Never True Current Housing: I Have Housing Concerned About Future Housing: No Difficulty Paying Gas/Electric Bills: No Difficulty Paying for Meds: No Currently Unemployed: No Education: High School Diploma/GED Difficulty w/ Childcare or Family Care: No Living arrangements: with family Additional living arrangements comments: Occupation/Education: retired Gender identity (if verbalized by the patient): Female Sexual Orientation (if Verbalized by the Patient): Straight or Heterosexual Spiritual care concerns: No Anes - Eval Final PreProcedure Day of Procedure 04/17/25 08:39 Patient weight: obese Heart: regular rate and rhythm Lungs: clear to auscultation Airway: Mallampati scale class II Neurological: alert and oriented Last oral intake: >/= 8 hours ASA classification: III Emergent: no Anesthetic plan: proceed Anesthesia type and monitoring: general GIVS and standard monitoring Results Review: All pre-operative results and documents have been reviewed as part of the pre- operative evaluation. Informed Consent: The patient's anesthetic plan and its attendant risks and benefits were discussed with the patient/family/POA. Questions were solicited and answers provided to the satisfaction of the patient/family/POA.
[2025-04-17] MEDS: LACTATED RINGERS 1,000 ML 30 ML IV CONT (08:40)
--- NOTE | 2025-04-17 09:44 | P.HP_ITS ---
H&P: HPI History of Present Illness Date/Time: 04/17/25 09:44 Chief Complaint: Intrinsic sphincter deficiency Narrative: Mixed incontinence. Desires treatment of intrinsic sphincter deficiency Review of Systems Review of Systems: All systems reviewed & are unremarkable except as noted in HPI and below PMFSH Past Medical History Medical History Tricuspid valve regurgitation Screening mammogram, encounter for Heart disease stage 1 diastolic dysfunction COPD (chronic obstructive pulmonary disease) Hypertension Asthma Osteoarthritis Anxiety and depression Surgical History Surgical History History of back surgery H/O total knee replacement (~2019) right knee / left knee 2022 History of sinus surgery History of cholecystectomy History of stress incontinence procedure using tension free vaginal tape History of tonsillectomy History of hysterectomy (~1987) Family History Family History Father Diabetes mellitus Family history of congenital heart disease Family history of arthritis Family history of kidney stones Mother Family history of osteoporosis Family history of congenital heart disease Family history of arthritis Family history of chronic obstructive pulmonary disease Sibling Family history of malignant neoplasm of skin Other Diabetes mellitus maternal aunt Malignant neoplasm of lung paternal uncle Aneurysm paternal uncle Malignant tumor of pharynx paternal uncle Daughter Diabetes mellitus Other Family history of malignant neoplasm of bone Social History Social History Smoking status: Never smoker Alcohol intake: never Substance use: never Substance use type: does not use Do You Feel Safe in your Home?: Yes Lack of Transportation: No Lack of Food: Never True Current Housing: I Have Housing Concerned About Future Housing: No Difficulty Paying Gas/Electric Bills: No Difficulty Paying for Meds: No Currently Unemployed: No Education: High School Diploma/GED Difficulty w/ Childcare or Family Care: No Living arrangements: with family Additional living arrangements comments: Occupation/Education: retired Gender identity (if verbalized by the patient): Female Sexual Orientation (if Verbalized by the Patient): Straight or Heterosexual Spiritual care concerns: No Meds Home Medications and Allergies Home Medications ?Medication ?Instructions ?Recorded ?Confirmed ?Type famotidine 20 mg tablet 20 mg PO DAILY 11/07/22 04/17/25 History folic acid 1 mg tablet 1 mg PO DAILY 11/07/22 04/03/25 History magnesium 250 mg tablet 250 mg PO DAILY 11/07/22 04/03/25 History ropinirole 1 mg tablet 1 mg PO BID 11/07/22 04/17/25 History tramadol 50 mg tablet 50 mg PO Q6H PRN pain 11/07/22 04/03/25 History zinc acetate 50 mg (zinc) capsule 50 mg PO DAILY 11/07/22 04/03/25 History lisinopril 2.5 mg tablet 10 mg PO DAILY 12/02/24 04/17/25 History tolterodine 4 mg capsule,extended 4 mg PO Q24H #30 caps 01/21/25 04/17/25 Rx release 24 hr (Detrol LA) acetaminophen 650 mg 650 mg PO Q8H PRN pain 04/03/25 04/17/25 History tablet,extended release (Arthritis Pain Relief (acetaminophen) ER) albuterol sulfate 90 mcg/actuation 2 inh inhalation Q6-8H bronchospasm 04/03/25 04/03/25 History aerosol inhaler fluticasone propionate 50 2 spray intranasal DAILY 04/17/25 04/17/25 History mcg/actuation nasal spray,suspension Allergies Allergy/AdvReac Type Severity Reaction Status Date / Time codeine Allergy Severe Vomiting Verified 04/17/25 08:08 hydroxychloroquine Allergy Intermediate Rash Verified 04/17/25 08:08 ondansetron AdvReac Severe Vomiting Verified 04/17/25 08:08 ciprofloxacin AdvReac Vomiting Verified 04/17/25 08:08 Vital Signs Vital Signs - 24 hr 04/17/25 08:05 Temperature 97.7 F Pulse Rate 68 Respiratory Rate 20 Blood Pressure 147/78 H Pulse Oximetry 95 Oxygen Delivery Room Air Exam Narrative: No acute distress Fixed urethra Assessment and Plan Assessment and plan (1) Intrinsic sphincter deficiency (ISD): Code(s): N36.42 - Intrinsic sphincter deficiency (ISD) Status: Acute Plan Note:?ASSESSMENT: - Stress urinary incontinence secondary to intrinsic sphincter deficiency - Mixed urinary incontinence PLAN: - We discussed the treatment options for stress urinary incontinence secondary to intrinsic sphincter deficiency, including observation, pelvic floor muscle rehabilitation, and transurethral bulking agents. She is most interested in the latter. - We discussed the alternatives, benefits, and risks. We discussed specifically the risks of bleeding, infection, failure to correct incontinence, injury to the urethra, obstructive voiding requiring catheterization, and de misbah or worsening irritative voiding symptoms. She understands that the expected cure rate is b etween 65-75% and that the procedure will likely need to be repeated over time. We also discussed that treatment of intrinsic sphincter deficiency is unlikely to improve overactive bladder symptoms if present. - After an extensive discussion, she wishes to proceed with a bulking agent. - The patient presents with symptoms indicative of mixed urinary incontinence. The causes of both urge and stress incontinence were clarified to the patient. Urge incontinence results from an overactive bladder muscle, while stress incontinence stems from a weak urethral sphincter. - The patient is aware that these two forms of incontinence have distinct causes and require different treatment approaches. They recognize that addressing one type may not alleviate the other, and in some instances, a combination of therapies may be necessary. Resume tolterodine as her urge incontinence has worsened without the medication
[2025-04-17] MEDS: ceFAZolin 2 GM/D5W 50 ML 2 GM/50 ML BAG IVPB (09:49)
[2025-04-17] MEDS: LIDOCAINE 2% GEL UROJET 10 ML PKG MUCOUS MEM (10:00)
[2025-04-17 10:13] VITALS: BP 130/64; PULSE 74; RESP 18
--- NOTE | 2025-04-17 10:23 | W.PM.PROC2 ---
Procedure Note - Detailed Date of Procedure 04/17/25 Pre-op Diagnosis Intrinsic sphincter deficiency Post-op Diagnosis Same Procedure Performed Cystoscopy suburethral injection of implant material Surgeon Todd Cunningham MD Anesthesia MAC and Local (Uro jet) Indications She has intrinsic sphincter deficiency. She desires correction. She is here today for a bulking agent. Understands risks of bleeding, infection, incomplete efficacy, urinary retention requiring catheterization, need for repeat procedures. She agrees to proceed Description of Procedure She was correctly identified. Informed consent obtained. From the operating room. She was given monitored anesthesia care. She was given Uro jet per urethra. She was placed in dorsal lithotomy position. She was prepped draped sterile fashion. Given appropriate perioperative antibiotics. Time-out performed. Cystoscopy revealed no significant bladder abnormalities. No tumors or stones. Urethra open consistent with intrinsic sphincter deficiency. I chose a site the mid urethra 2 cm distal bladder neck. I injected the bulking agent circumferentially forming several pillows coapting the urethra. I used both syringes of material. Her bladder was left partially full. She was awakened transferred to PACU in stable condition. Estimated Blood Loss 0 Drains No Packing No Pathology None sent Complications No immediate complications Condition Stable Disposition PACU
[2025-04-17 10:45] VITALS: BP 132/75; PULSE 66; RESP 16
[2025-04-17 11:07] VITALS: BP 138/75; PULSE 58; RESP 18
== END 2025-04-17 11:09 | disposition home or self-care (01) ==
PROVIDERS: Visit Provider Urology
PROC: 3E0K8GC Introduction of Other Therapeutic Substance into Genitourinary Tract, Via Natural or Artificial Opening Endoscopic (ICD-10-PCS; CPT 51715; principal; 2025-04-17 10:00)
DX: N36.42 Intrinsic sphincter deficiency (ISD) (principal); N39.46 Mixed incontinence
CPT/HCPCS: 51715; J0690; J2003; J2704; J7120; L8606